=== PATIENT | female | born 1995 ===

== ENCOUNTER 2021-09-09 22:02 | Inpatient (IN) | payer OTHER ==
--- NOTE | 2021-09-10 00:05 | History and Physical Report ---
History of Present Illness Date of examination: 09/09/21 Date of admission: 09/09/2021 Chief complaint: Contractions History of present illness: 26-year-old -0-0-2 at 37-3/7 weeks gestation presents to OB triage reporting regular and painful uterine contractions every 6 minutes. No vaginal bleeding. No leakage of fluid. There is good movement. The patient receives care at [facility]. She states that she had a GBS culture performed 1 week ago. The results of that are unknown at this time. In OB triage, cervix was noted be 7 cm dilated. The patient is admitted to labor and delivery in active labor. Past History Past Medical History: no pertinent history Past Surgical History: no surgical history Family/Genetic History: none Social history: no significant social history - Obstetrical History Expected Date of Delivery: 09/27/21 Actual Gestation: 37 Week(s) 4 Day(s) : 3 Para: 2 Medications and Allergies Active Meds: Active Medications Ephedrine Sulfate (Ephedrine Sulfate 50 Mg/1 Ml Inj) 10 mg IV Q2M PRN PRN Reason: Hypotension Lactated Ringer's (Lactated Ringers) 1,000 mls @ 125 mls/hr IV DIRECT TALYA Review of Systems All systems: negative - Vital Signs Vital signs: Vital Signs Pulse BP Pulse Ox 96 H 130/89 98 09/09/21 22:40 09/09/21 22:40 09/09/21 22:40 Temp Pulse Resp BP Pulse Ox 98.1 F 104 H 18 130/89 99 09/09/21 22:58 09/10/21 00:00 09/09/21 22:58 09/09/21 22:58 09/10/21 00:00 - Physical Exam Breasts: Positive: normal Cardiovascular: Regular rate Lungs: Positive: Normal air movement Abdomen: Positive: normal appearance Genitourinary (Female): Positive: normal external genitalia Vulva: both: normal Vagina: Positive: normal moisture Uterus: Positive: enlarged Adnexa: both: normal Anus/Rectum: Positive: normal perianal skin Extremities: Positive: normal Deep Tendon Reflex Grade: Normal +2 - Obstetrical FHR: category 1 Uterine Contraction Monitor Mode: External Cervical Dilatation: 7 Cervical Effacement Percentage: 70 station: -1 Uterine Contraction Frequency (min): 5 Uterine Contraction Pattern: Regular Uterine Tone Measurement Phase: Contraction Results All other labs normal. Ultrasound: pending Assessment and Plan - Patient Problems (1) 37 weeks gestation of Current Visit: Yes Status: Acute Plan to address problem: care is up-to-date at [facility]. GBS status is unknown. The patient has no known risk factors for GBS at this time. As such, no intrapartum antibiotic prophylaxis for GBS at this time. However, if the patient develops risk factors, then treat with penicillin. (2) Spontaneous onset of labor after 37 but before 39 completed weeks gestation with delivery by planned section Current Visit: Yes Status: Acute Plan to address problem: The patient is 7 cm dilated. As such, this patient is an active labor. Await results of OB ultrasound for estimated weight. Admit to labor and delivery. Expectant management for now.
[2021-09-10] MEDS ORDERED: ePHEDrine SULFATE 50 MG/1 ML INJ IV PRN (00:30)
[2021-09-10] MEDS ORDERED: fentaNYL 100 MCG/2 ML INJ IV PRN (00:30)
[2021-09-10] MEDS ORDERED: BUTORPHANOL 2 MG/1 ML INJ IV PRN (00:30)
[2021-09-10] MEDS ORDERED: ACETAMINOPHEN 325 MG TAB PO PRN (00:30)
[2021-09-10] MEDS ORDERED: CARBOPROST TROMETHAMINE 250 MCG/1 ML INJ IM PRN (00:30)
--- NOTE | 2021-09-10 00:55 | Ultrasound Report ---
US OB follow up INDICATION / CLINICAL INFORMATION: Abdominal pain, contractions evaluation of estimated weight and amniotic fluid index COMPARISON: None available. TECHNIQUE: Using a transcutaneous probe, multiple grayscale, color Doppler, and spectral Doppler imag es of the uterus and fetus were captured and stored. FINDINGS: Single cephalic fetus with heart rate of 141 bpm is demonstrated. Amniotic fluid index 6.8 cm, minimally low. Biparietal Diameter = 8.69 cm = 35, 1 weeks, days Head Circumference = 31.15 cm = 34, 6 weeks, days Abdominal Circumference = 32.03 cm = 36, 0 weeks, days Femur Length = 7.45 cm = 38, 1 weeks, days Average Ultrasound Age (AUA) = 36, 0 weeks, days. EDC 10/08/2021. Clinical estimated gestational age based on LMP of 12/21/2020 is 37 weeks 4 days. Estimated weight = 2898 g; 27th percentile.. IMPRESSION: 1. Single living fetus with estimated weight of 2098 g. 2. Mild oligohydramnios. AMRY of 6.8 cm. Signer Name: Jose E Calixto II, MD Signed: 09/10/2021 12:51 AM Workstation Name: [id number]
[2021-09-10] MEDS ORDERED: LIDOCAINE (2%) 20 MG/1 ML VIAL 20 ML MDV INFILTRATI ONE (00:57)
[2021-09-10] MEDS ORDERED: METHYLERGONOVINE MALEATE 0.2 MG/ML VIAL IM PRN (01:00)
[2021-09-10] MEDS ORDERED: OXYTOCIN DRIP 30 UNITS/500 ML BAG IV SCH (01:00)
[2021-09-10] MEDS ORDERED: LACTATED RINGERS 1,000 ML IV SCH (01:00)
--- NOTE | 2021-09-10 01:35 | Procedure Note ---
OB Delivery Note - Delivery Date of Delivery: 09/10/21 Surgeon: PERCY GANT Estimated blood loss: 300cc - Vaginal Delivery presentation: vertex Delivery position: OA Delivery induction: none Delivery augmentation: rupture of membranes Delivery monitor: external FHT, external uterine Route of delivery: Delivery placenta: spontaneous Delivery cord: nuchal cord, 3 umbilical vessels Episiotomy: none Delivery laceration: 2nd degree Delivery repair: vicryl Anesthesia: local - A at 1 minute: 8 at 5 minutes: 9 Infant Gender: Female
[2021-09-10] MEDS ORDERED: LANOLIN/ZINC/DIMETHICONE (LANSINOH) 7 GM TP PRN (01:36)
[2021-09-10 01:46] LABS: Hematocrit 27.7 % (30.3-42.9); Hemoglobin 8.9 gm/dl (10.1-14.3); Mean Corpuscular HGB Conc 32 % (30-34); Mean Corpuscular Volume 79 fl (79-97); Platelet Count 268 K/mm3 (140-440); Red Blood Count 3.51 M/mm3 (3.65-5.03); Red Cell Distribution Width 15.9 % (13.2-15.2)
[2021-09-10] MEDS ORDERED: HYDROcodone/ACETAMINOPHEN 5-325 MG TAB PO PRN (02:00)
[2021-09-10] MEDS ORDERED: WITCH HAZEL/ GLYCERIN PAD TP PRN (02:00)
[2021-09-10] MEDS ORDERED: BENZOCAINE/MENTHOL 20/0.5% TOP SPRAY 56 GM TP PRN (02:00)
[2021-09-10] MEDS: DOCUSATE SODIUM 100 MG CAP PO SCH (09:03)
[2021-09-10] MEDS: IBUPROFEN 800 MG TAB PO SCH ×2 (09:03→18:03)
[2021-09-10] MEDS: PRENATAL VIT27-FE FUMARATE-FOLIC ACID VIT TAB PO SCH (09:03)
--- NOTE | 2021-09-11 10:15 | Progress Note ---
Assessment and Plan A: day 1 S/P . Anemia. P: Supplement with iron. Repeat CBC. Continue routine care. Anticipate discharge home tomorrow morning if patient continues to do well. Subjective - Subjective Date of service: 09/11/21 Principal diagnosis: day 1 S/P Patient reports: appetite normal, voiding normally, pain well controlled, flatus, ambulating normally, no dizzy ambulation, no nauseated : doing well Objective - Vital Signs Latest vital signs: Vital Signs Temp Pulse Resp BP BP Pulse Ox Pulse Ox 09/11/21 08:31 22 113/78 09/11/21 00:56 97.7 F 75 18 116/77 98 09/10/21 20:15 97 09/10/21 15:48 98.1 F 84 20 125/80 97 09/10/21 12:21 97.6 F 85 20 120/76 99 Intake and Output 09/10/21 09/11/21 09/11/21 23:59 07:59 15:59 Intake Total 120 420 Balance 120 420 Intake: Oral 120 Intake, Free Water 420 Other: Total, Intake Amount 120 # Voids Void 1 1 - Exam Cardiovascular: Present: Regular rate Lungs: Present: Clear to auscultation Abdomen: Present: normal appearance, soft. Absent: distention, tenderness, guarding, rigidity Uterus: Present: normal, firm, fundal height below umbilicus. Absent: bogginess, tenderness Extremities: Absent: tenderness
[2021-09-11 10:43] LABS: Hematocrit 29.9 % (30.3-42.9); Hemoglobin 9.4 gm/dl (10.1-14.3); Mean Corpuscular HGB Conc 31 % (30-34); Mean Corpuscular Volume 80 fl (79-97); Platelet Count 313 K/mm3 (140-440); Red Blood Count 3.72 M/mm3 (3.65-5.03); Red Cell Distribution Width 15.9 % (13.2-15.2)
[2021-09-11] MEDS: DOCUSATE SODIUM 100 MG CAP PO SCH ×2 (10:54→22:29)
[2021-09-11] MEDS: PRENATAL VIT27-FE FUMARATE-FOLIC ACID VIT TAB PO SCH (10:54)
[2021-09-11] MEDS: IBUPROFEN 800 MG TAB PO SCH ×3 (10:55→20:00)
[2021-09-11] MEDS: FERROUS SULFATE 325 MG TAB PO SCH ×2 (10:55→22:29)
[2021-09-11 11:58] LABS: Hepatitis C Virus Antibody Non-Reactive (NonReactive)
[2021-09-12] MEDS: IBUPROFEN 800 MG TAB PO SCH (02:00)
--- NOTE | 2021-09-12 07:03 | Progress Note ---
Assessment and Plan A: day 2 S/P . Anemia. P: Discharge patient home today. Discussed with patient discharge instructions and warning signs. Advised patient to continue taking her vitamin and iron supplements at home (patient states she has these at home). Advised patient to avoid intercourse, lifting, driving, and housework. Advised patient to follow up at [facility] in 1 week. Patient voiced understanding of all instructions. Subjective - Subjective Date of service: 09/12/21 Principal diagnosis: day 2 S/P Interval history: Patient requests discharge home today. Patient reports: appetite normal, voiding normally, pain well controlled, flatus, ambulating normally, no dizzy ambulation, no nauseated : doing well Objective - Vital Signs Latest vital signs: Vital Signs Temp Pulse Resp BP BP Pulse Ox Pulse Ox 09/12/21 02:00 18 09/12/21 01:24 98.2 F 89 16 117/73 98 09/11/21 20:00 18 100 09/11/21 08:31 22 113/78 09/11/21 07:50 98 Intake and Output 09/11/21 09/11/21 09/12/21 15:59 23:59 07:59 Intake Total 500 180 Balance 500 180 Intake: Intake, Free Water 500 180 Other: # Voids Void 2 2 - Exam Cardiovascular: Present: Regular rate Lungs: Present: Clear to auscultation Abdomen: Present: normal appearance, soft, normal bowel sounds. Absent: distention, tenderness, guarding, rigidity Uterus: Present: normal, firm, fundal height below umbilicus. Absent: bogginess, tenderness Extremities: Absent: tenderness, edema - Labs Labs: Abnormal lab results 09/11/21 Range/Units 09:47 WBC 14.6 H (4.5-11.0) K/mm3 Hgb 9.4 L (10.1-14.3) gm/dl Hct 29.9 L (30.3-42.9) % MCH 25 L (28-32) pg RDW 15.9 H (13.2-15.2) %
--- NOTE | 2021-09-12 07:08 | Discharge Summary ---
Providers - Providers Date of Admission: 09/10/21 01:19 Date of discharge: 09/12/21 Attending physician: MASSIEL PINTO Primary care physician: MASSIEL PINTO Hospitalization Reason for admission: active labor Delivery: Laceration: 2nd degree Other procedures: none complications: none Discharge diagnosis: IUP at term delivered baby: female Pertinent studies: Labs Hospital course: Stable hospital course. Condition at discharge: Good Disposition: 01 HOME / SELF CARE / HOMELESS - Discharge Diagnoses (1) Term delivered Status: Acute (2) Anemia Status: Acute Plan - Provider Discharge Summary Activity: routine, no sex for 6 weeks, no heavy lifting 4 weeks, no strenuous exercise Diet: routine Instructions: routine Additional instructions: Continue taking your vitamin and iron supplements at home. Follow up at [facility] in 1 week. Call your doctor immediately for: * Fever > 100.5 * Heavy vaginal bleeding ( >1 pad per hour) * Severe persistent headache * Shortness of breath * Reddened, hot, painful area to leg or breast - Follow up plan Follow up: [facility] [Referring] - 7 Days Forms: [facility] Discharge Summary
[2021-09-12] MEDS: PRENATAL VIT27-FE FUMARATE-FOLIC ACID VIT TAB PO SCH (10:07)
[2021-09-12] MEDS: FERROUS SULFATE 325 MG TAB PO SCH (10:08)
[2021-09-12] MEDS: DOCUSATE SODIUM 100 MG CAP PO SCH (10:08)
[2021-09-12 13:17] VITALS: BP 124/72
== END 2021-09-12 11:20 | disposition home or self-care (01) | DRG 775 ==
LOC: TRG 22:02 → APU 22:03 → LD 09-10 00:21 → TRG 09-10 01:18 → LD 09-10 01:19 → OB 09-10 02:57
PROVIDERS: ADMIT Obstetrics & Gynecology; ATTEND Obstetrics & Gynecology
PROC: 10E0XZZ Delivery of Products of Conception, External Approach (ICD-10-PCS; principal; 2021-09-10)
PROC: 0KQM0ZZ Repair Perineum Muscle, Open Approach (ICD-10-PCS; 2021-09-10)
DX: O69.81X0 Labor and delivery complicated by cord around neck, without compression, not applicable or unspecified (principal); Z3A.37 37 weeks gestation of pregnancy; Z37.0 Single live birth; Z20.822 Contact with and (suspected) exposure to COVID-19; O70.1 Second degree perineal laceration during delivery; O90.81 Anemia of the puerperium
CPT/HCPCS: 36415; 76816; 85027; 86592; 86706; 86803; 86850; 86900; 86901; 87806; 99211; G0378; J3490; G0463; J2590; U0003